=== PATIENT | female | born 1990 | race African-American/Black ===

== ENCOUNTER 2017-11-16 05:48 | Inpatient (IN) ==
[2017-11-16] MEDS ORDERED: MEPERIDINE 50 MG/1 ML VIAL IV PRN (06:08)
[2017-11-16] MEDS ORDERED: ONDANSETRON 4 MG/2 ML VIAL IV PRN (06:08)
[2017-11-16] MEDS: LACTATED RINGERS 1,000 ML IV SCH ×2 (06:25→09:36)
[2017-11-16] MEDS ORDERED: OXYTOCIN/LR 20 UNIT/1,000 ML BAG IV SCH (06:30)
[2017-11-16 06:44] LABS: Basophils % 0.3 % (0.0-0.8); Eosinophils # 0.1 10*3/uL (0.0-0.87); Eosinophils % 0.6 % (0.00-10.9); Hematocrit 33.4 VOL% (35.7-47.0); Hemoglobin 10.9 GM/DL (12.0-16.0); Immature Granulocytes % 0.5 %; Immature Granulocytes Absolute 0.05 #; Lymphocytes # 2.4 10*3/uL (1.4-4.0); Lymphocytes % 25.1 % (21.3-54.2); Mean Corpuscular HGB Conc 32.6 GM/DL (32-36); Mean Corpuscular Hemoglobin 28 PG (27-34); Mean Platelet Volume 10.2 FL (9.6-12.0); Monocytes # 0.6 10*3/uL (0.11-0.8); Monocytes % 6.5 % (1.7-12.7); Neutrophils # 6.3 10*3/uL (1.4-7.4); Platelet Count 342 T/CUMM (130-400); Red Blood Count 3.84 MC/CUMM (3.8-5.5); Red Cell Distribution Width 13.7 % (9.3-17.3); White Blood Count 9.4 T/CUMM (4-12)
[2017-11-16] MEDS ORDERED: PROMETHAZINE 25 MG/1 ML VIAL IM ONE (09:13)
[2017-11-16] MEDS ORDERED: hydrOXYzine HCL 25 MG/1 ML VIAL IM PRN (09:13)
[2017-11-16] MEDS ORDERED: ePHEDrine 50 MG/ML AMP IV PRN (09:13)
[2017-11-16] MEDS ORDERED: diphenhydrAMINE 50 MG/1 ML VIAL IV PRN ×2 (09:13)
[2017-11-16] MEDS ORDERED: CITRIC ACID/SODIUM CITRATE 30 ML UDCUP PO ONE (09:13)
[2017-11-16] MEDS ORDERED: FAMOTIDINE 20 MG/2 ML VIAL IV ONE (09:13)
[2017-11-16] MEDS ORDERED: fentaNYL 2 MCG/ROPIV 0.2% EPID 150 ML EPIDURAL SCH (09:30)
[2017-11-16 13:36] LABS: Apearance,Urine CLEAR (Clear); Bilirubin,Urine Negative (Negative); Blood, Urine Negative (Negative); Glucose,Urine (UA) Negative (Negative); Ketones,Urine Negative (Negative); Mucus,Urine Occasional /LPF (Occasional); Nitrite,Urine Negative (Negative); Protein,Urine Negative; RBC,Urine <1 /HPF (0-4); Squamous Epithelial Cell,Urine Occasional /HPF (0-10); Urine Color Yellow (Yellow); Urine Specific Gravity 1.018 (1.001-1.035); WBC,Urine <1 /HPF (0-6)
[2017-11-16 15:43] LABS: Cord Arterial Blood HCO3 25.6 MMOL/L
[2017-11-16 15:46] LABS: Cord Venous Blood HCO3 22.6 MMOL/L; Cord Venous Blood PCO2 37.7 MMHG; Cord Venous Blood PO2 34.9
[2017-11-16] MEDS ORDERED: oxyCODONE/ACETAMINOPHEN 5-325 MG TABLET PO PRN (17:19)
[2017-11-16] MEDS ORDERED: ACETAMINOPHEN/CODEINE 300-30 MG TABLET PO PRN (17:19)
[2017-11-16] MEDS ORDERED: BENZOCAINE 20%/MENTHOL 0.5% SPRAY 56 GM CAN TOP PRN (17:19)
[2017-11-16] MEDS ORDERED: OXYTOCIN/LR 20 UNIT/1,000 ML BAG IV ONE (17:19)
[2017-11-16] MEDS ORDERED: WITCH HAZEL PADS 100/JAR TOP PRN (17:19)
[2017-11-16] MEDS ORDERED: BISACODYL 10 MG SUPP RECTAL PRN (17:19)
[2017-11-16] MEDS ORDERED: ACETAMINOPHEN 325 MG TABLET PO PRN (17:19)
[2017-11-16] MEDS ORDERED: HYDROCORTISONE 2.5% RECTAL CREAM 30 GM TUBE TOP PRN (17:19)
[2017-11-16] MEDS ORDERED: LANOLIN 50% CREAM 0.3 OZ TUBE TOP PRN (17:19)
[2017-11-16] MEDS ORDERED: RHO(D) IMMUNE GLOBULIN 300 MCG SYRINGE IM ONE (17:30)
[2017-11-16] MEDS ORDERED: MEASLES/MUMPS/RUBELLA VACCINE 0.5 ML VIAL SUBCUT ONE (17:30)
[2017-11-16] MEDS ORDERED: DIPH/TET/ACEL PERT BOOSTER VACCINE 0.5 ML VIAL IM ONE (17:30)
[2017-11-16] MEDS: IBUPROFEN 800 MG TABLET PO PRN (19:06)
[2017-11-16] MEDS: DOCUSATE SODIUM 100 MG CAPSULE PO SCH (20:37)
[2017-11-16] MEDS: oxyCODONE/ACETAMINOPHEN 5-325 MG TABLET PO PRN (20:37)
[2017-11-17 06:25] LABS: Basophils % 0.2 % (0.0-0.8); Eosinophils # 0.1 10*3/uL (0.0-0.87); Eosinophils % 1.2 % (0.00-10.9); Hematocrit 29.5 VOL% (35.7-47.0); Hemoglobin 9.8 GM/DL (12.0-16.0); Immature Granulocytes % 0.4 %; Immature Granulocytes Absolute 0.04 #; Lymphocytes # 2.6 10*3/uL (1.4-4.0); Lymphocytes % 25.7 % (21.3-54.2); Mean Corpuscular HGB Conc 33.2 GM/DL (32-36); Mean Corpuscular Hemoglobin 29 PG (27-34); Mean Corpuscular Volume 86.5 FL (87-102); Mean Platelet Volume 10.4 FL (9.6-12.0); Monocytes % 9.6 % (1.7-12.7); Neutrophils # 6.4 10*3/uL (1.4-7.4); Neutrophils % 62.9 % (38.7-73.9); Platelet Count 269 T/CUMM (130-400); Red Blood Count 3.41 MC/CUMM (3.8-5.5); Red Cell Distribution Width 13.7 % (9.3-17.3); White Blood Count 10.1 T/CUMM (4-12)
[2017-11-17] MEDS: oxyCODONE/ACETAMINOPHEN 5-325 MG TABLET PO PRN ×3 (09:21→21:41)
[2017-11-17] MEDS: DOCUSATE SODIUM 100 MG CAPSULE PO SCH ×2 (09:22→20:33)
[2017-11-17] MEDS: FERROUS SULFATE 325 MG TABLET PO SCH ×2 (15:59→20:33)
[2017-11-18 07:19] VITALS: BP 139/73
[2017-11-18] MEDS: FERROUS SULFATE 325 MG TABLET PO SCH (08:29)
[2017-11-18] MEDS: DOCUSATE SODIUM 100 MG CAPSULE PO SCH (08:29)
[2017-11-18] MEDS: IBUPROFEN 800 MG TABLET PO PRN (08:30)
== END 2017-11-18 12:35 | disposition home or self-care (01) | DRG 560 ==
LOC: N.LD 05:48 → N.OB 20:31
PROVIDERS: ADMIT Obstetrics & Gynecology; ATTEND Obstetrics & Gynecology